=== PATIENT | female | born 1980 ===

== ENCOUNTER 2021-07-31 12:47 | Outpatient (CLI) | payer OTHER | END 2021-07-31 14:47 | disposition home or self-care (01) | LOC: MRI 12:47 | PROVIDERS: ATTEND Orthopaedic Surgery | DX: M25.561 Pain in right knee (principal); M25.562 Pain in left knee; S83.201A Bucket-handle tear of unspecified meniscus, current injury, left knee, initial encounter | CPT/HCPCS: 73718 ==